=== PATIENT | male | born 1960 | race Caucasian/White ===

== ENCOUNTER 2017-01-20 06:47 | Inpatient (IN) | payer OTHER ==
[2017-01-19 11:37] VITALS: BMI 29.8
[2017-01-20] MEDS ORDERED: methylPREDNISolone ACET (DEPO) 40 MG/1 ML VIAL ONE (07:45)
[2017-01-20] MEDS ORDERED: BUPIVACAINE HCL/PF 2.5 MG/ML - 30 ML VIAL IJ ONE (07:45)
[2017-01-20] MEDS ORDERED: LIDOCAINE 1%-EPI 1:100,000 30 ML MDV IJ ONE (07:46)
[2017-01-20] MEDS ORDERED: GUM MASTIC/STORAX/MSAL/ALCOHOL 1 DRP DROPSBTL MC ONE (07:46)
[2017-01-20] MEDS ORDERED: THROMBIN (BOVINE) 5,000 UNIT VIAL TP ONE (07:46)
[2017-01-20] MEDS ORDERED: MIDAZOLAM HCL 2 MG/2 ML SINGLE DOSE VIAL ONE (07:48)
--- NOTE | 2017-01-20 08:24 | HP ---
History & Physical Update - History History: No Change - Physical Physical: No Change - Assessment Assessment: No Change - Plan Plan: No Change (Today's surgery cancelled due to incomplete authorization. To be rescheduled for TLIF next week.)
[2017-01-27] MEDS ORDERED: oxyCODONE HCL 10 MG SUSTAINED ACTING TABLET ONE (08:14)
[2017-01-27] MEDS ORDERED: oxyCODONE HCL 10 MG SUSTAINED ACTING TABLET PO ONE (08:19)
--- NOTE | 2017-01-27 08:19 | HP ---
History & Physical Update - History History: No Change - Physical Physical: No Change - Assessment Assessment: No Change - Plan Plan: No Change
[2017-01-27] MEDS ORDERED: LIDOCAINE 1%-EPI 1:100,000 30 ML MDV IJ ONE (08:23)
[2017-01-27] MEDS ORDERED: GUM MASTIC/STORAX/MSAL/ALCOHOL 1 DRP DROPSBTL MC ONE (08:23)
[2017-01-27] MEDS ORDERED: BUPIVACAINE HCL/PF 2.5 MG/ML - 30 ML VIAL IJ ONE (08:23)
[2017-01-27] MEDS ORDERED: MIDAZOLAM HCL 2 MG/2 ML SINGLE DOSE VIAL ONE ×4 (08:33→10:04)
[2017-01-27] MEDS ORDERED: BUPIVACAINE HCL/PF 0.5% (5MG/ML) 10 ML VIAL ONE (08:41)
[2017-01-27] MEDS ORDERED: SUCCINYLCHOLINE CHLORIDE 200 MG/10 ML VIAL ONE (08:54)
[2017-01-27] MEDS ORDERED: ceFAZolin SODIUM 1 GM VIAL ONE ×2 (09:09→09:10)
[2017-01-27] MEDS ORDERED: LIDOCAINE HCL 1%, 10 MG/ML (50 mL VIAL) IJ ONE (09:25)
[2017-01-27] MEDS ORDERED: LACTATED RINGERS SOLUTION 1,000 ML IV SCH ×2 (09:30→12:00)
[2017-01-27] MEDS ORDERED: PROMETHAZINE HCL 25 MG/1 ML VIAL IVPUSH PRN (09:30)
[2017-01-27] MEDS ORDERED: ONDANSETRON 4 MG/2 ML VIAL IVPUSH PRN (09:30)
[2017-01-27] MEDS ORDERED: GELATIN, ABSORBABLE 100 EACH SPONGE TP ONE ×2 (10:41→11:18)
[2017-01-27] MEDS ORDERED: THROMBIN (BOVINE) 5,000 UNIT VIAL TP ONE (11:17)
[2017-01-27] MEDS ORDERED: BUPIVACAINE HCL/PF 0.25% (2.5MG/ML) 10 ML VIAL IJ ONE (11:18)
[2017-01-27] MEDS ORDERED: oxyCODONE HCL 5 MG TABLET PO PRN ×2 (11:49)
[2017-01-27] MEDS ORDERED: ONDANSETRON 4 MG/2 ML VIAL IVPB PRN (11:49)
[2017-01-27] MEDS ORDERED: ACETAMINOPHEN 1000 MG/100 ML VIAL (NON FORMULARY) IVPB PRN (11:49)
[2017-01-27] MEDS ORDERED: ONDANSETRON 4 MG/2 ML VIAL ONE (11:50)
[2017-01-27] MEDS ORDERED: ACETAMINOPHEN 1000 MG/100 ML VIAL (NON FORMULARY) IVPB ONE (12:00)
[2017-01-27] MEDS: traMADol HCL 50 MG TABLET PO SCH ×2 (15:02→21:11)
--- NOTE | 2017-01-27 15:28 | OP ---
Operative Note - Note: Operative Date: 01/27/17 Pre-Operative Diagnosis: lumbar spondylolithesis L4-L5 Operation: posterior lumbar decompression, instrumentation, fusion, transforaminal lumbar interbody fusion of L4-L5 with allograft and neuromonitoring Post-Operative Diagnosis: Same as Pre-op Surgeon: Jarvis Thornton Lombardi Developer: Nadine Anne Anesthesiologist/OPTOMETRIST: Carin Henry Anesthesia: Spinal Estimated Blood Loss (mls): 30 Fluid Volume Replaced (mls): 800 Operative Report Dictated: Yes
--- NOTE | 2017-01-27 15:28 | SURG ---
Surgery Director Of Recruitment And Admissions Note Director Of Recruitment And Admissions: Nadine Anne PA-C Date of Service: 01/27/17 Diagnosis: lumbar spondylolithesis Procedure: posterior lumbar decompression, instrumentation, fusion, transforaminal lumbar interbody fusion of L4-L5 with allograft and neuromonitoring I was present for the entirety of the operative procedure. For further detail, please refer to operative report. Visit type - Case Type Case Type: Scheduled Admission - Emergency Emergency Visit: No - New patient This patient is new to me today: Yes Date on this admission: 01/27/17 - Critical Care Critical Care patient: No
[2017-01-27] MEDS: CYCLOBENZAPRINE HCL 10 MG TABLET (FP) PO SCH (16:26)
[2017-01-27] MEDS: CEFAZOLIN 1 GM/D5W 50 ML IVPB SCH (16:54)
[2017-01-27] MEDS ORDERED: CYCLOBENZAPRINE HCL 10 MG TABLET (FP) PO SCH (17:00)
[2017-01-27] MEDS ORDERED: diazePAM 5 MG TABLET PO PRN (17:19)
[2017-01-27] MEDS ORDERED: traMADol HCL 50 MG TABLET PO SCH (21:00)
[2017-01-27] MEDS: ACETAMINOPHEN 325 MG TABLET (FP) PO SCH (21:09)
[2017-01-27] MEDS ORDERED: KETOROLAC TROMETHAMINE 15 MG/ML VIAL IM ONE (21:16)
[2017-01-27] MEDS ORDERED: ATORVASTATIN CA 20 MG TABLET (FP) PO SCH (22:00)
[2017-01-28] MEDS: CYCLOBENZAPRINE HCL 10 MG TABLET (FP) PO SCH ×2 (02:00→08:28)
[2017-01-28] MEDS: ACETAMINOPHEN 325 MG TABLET (FP) PO SCH ×2 (02:00→08:28)
[2017-01-28] MEDS: CEFAZOLIN 1 GM/D5W 50 ML IVPB SCH (02:00)
[2017-01-28] MEDS: traMADol HCL 50 MG TABLET PO SCH ×2 (03:32→08:29)
[2017-01-28 06:42] VITALS: BP 119/62; PULSE 84; TEMP 98.2
--- NOTE | 2017-01-28 07:28 | DS ---
Physical Exam: SUBJECTIVE: Patient seen and examined. Patient states he had pain after surgery and last night, but pain is improving now. He states the pain is only in his back and the symptoms he had in his hip and leg prior to surgery are now gone. He is tolerating his diet, urinating without issue and ambulating. He denies fever, chills, nausea, vomiting. OBJECTIVE: Vital Signs Temperature 98.2 F 01/28/17 03:00 Pulse Rate 84 01/28/17 03:00 Respiratory Rate 18 01/28/17 03:00 Blood Pressure 119/62 01/28/17 03:00 O2 Sat by Pulse Oximetry (%) 100 01/28/17 06:39 PHYSICAL EXAM GENERAL: The patient is awake, alert, and fully oriented, in no acute distress. HEAD: Normal with no signs of trauma. EYES: PERRL, extraocular movements intact, sclera anicteric, conjunctiva clear. ENT: Ears normal, nares patent, moist mucous membranes. NECK: Trachea midline, full range of motion, supple. LUNGS: Breath sounds equal, clear to auscultation bilaterally, no wheezes, no crackles, no accessory muscle use. HEART: Regular rate and rhythm, S1, S2 without murmur, rub or gallop. ABDOMEN: Soft, nontender, nondistended, normoactive bowel sounds, no guarding, no rebound. EXTREMITIES: 2+ pulses, warm, well-perfused, no edema. NEUROLOGICAL: Cranial nerves II through XII grossly intact. Normal speech, gait not observed. Back incisions clean/dry/intact, surgical drain was removed fully intact and without incident, patient tolerated well PSYCH: Normal mood, normal affect. SKIN: Warm, dry. LABS HOSPITAL COURSE: Date of Admission:01/27/17 Date of Discharge: 01/28/17 The patient was admitted to the Med-Surg Unit after an elective repair of their lumbar spondylolithesis L4-L5. Now, s/p posterior lumbar decompression, instrumentation, fusion, transforaminal lumbar interbody fusion of L4-L5 with allograft and neuromonitoring. The day of surgery, the patient ambulated the hallways with assistance. Narcotic and non-narcotic pain management control was achieved with an oral and IV approach. POD #1, the surgical drain was removed fully intact and without incident. An xray was obtained and confirmed hardware placement, no fractures or dislocations. Christie-operative IV ABX were administered. DVT prophylaxis was achieved with SCDs and early ambulation. The patient ambulated with Physical Therapy and no services were recommended upon discharge. Narcotic scripts and or muscle relaxants were checked with [place] [employer]CRETARY prior to escibe. The discharge instructions and an oral pain management plan were reviewed with the patient. All questions answered. Above plan discussed with Dr. Thornton and agreed. Minutes to complete discharge: 30 <Tejal Deutsch - Last Filed: 01/28/17 12:10> Physical Exam: SUBJECTIVE: Patient seen and examined OBJECTIVE: Vital Signs Temperature 98.2 F 01/28/17 03:00 Pulse Rate 84 01/28/17 03:00 Respiratory Rate 18 01/28/17 03:00 Blood Pressure 119/62 01/28/17 03:00 O2 Sat by Pulse Oximetry (%) 100 01/28/17 06:39 PHYSICAL EXAM GENERAL: The patient is awake, alert, and fully oriented, in no acute distress. HEAD: Normal with no signs of trauma. EYES: PERRL, extraocular movements intact, sclera anicteric, conjunctiva clear. ENT: Ears normal, nares patent, oropharynx clear without exudates, moist mucous membranes. NECK: Trachea midline, full range of motion, supple. LUNGS: Breath sounds equal, clear to auscultation bilaterally, no wheezes, no crackles, no accessory muscle use. HEART: Regular rate and rhythm, S1, S2 without murmur, rub or gallop. ABDOMEN: Soft, nontender, nondistended, normoactive bowel sounds, no guarding, no rebound, no hepatosplenomegaly, no masses. EXTREMITIES: 2+ pulses, warm, well-perfused, no edema. NEUROLOGICAL: Cranial nerves II through XII grossly intact. Normal speech, gait not observed. PSYCH: Normal mood, normal affect. SKIN: Warm, dry, normal turgor, no rashes or lesions noted. LABS CBC,CMP WBC 13.7 K/mm3 (4.0-10.8) H 01/28/17 07:30 RBC 4.92 M/mm3 (4.00-5.60) 01/28/17 07:30 Hgb 13.6 GM/dl (11.7-16.9) 01/28/17 07:30 Hct 40.8 % (35.4-49) 01/28/17 07:30 MCV 82.9 fl (80-96) 01/28/17 07:30 MCHC 33.3 g/dl (32.0-35.9) 01/28/17 07:30 RDW 13.3 % (11.9-15.9) 01/28/17 07:30 Plt Count 326 K/MM3 (134-434) 01/28/17 07:30 MPV 6.2 fl (7.5-11.1) L 01/28/17 07:30 Sodium 138 mmol/L (136-145) 01/28/17 07:30 Potassium 4.2 mmol/L (3.5-5.1) 01/28/17 07:30 Chloride 102 mmol/L (98-107) 01/28/17 07:30 Carbon Dioxide 28 mmol/L (22-28) 01/28/17 07:30 Anion Gap 8 (8-16) 01/28/17 07:30 BUN 16 mg/dl (7-18) 01/28/17 07:30 Creatinine 0.9 mg/dl (0.6-1.3) 01/28/17 07:30 Random Glucose 120 mg/dl (74-106) H 01/28/17 07:30 Calcium 9.1 mg/dl (8.4-10.2) 01/28/17 07:30 HOSPITAL COURSE: Date of Admission:01/27/17 Date of Discharge: 01/31/17 The patient was admitted to the Med-Surg Unit after an elective repair of their reherniation. Now, s/p lumbar fusion. The day of surgery, the patient ambulated the hallways with assistance. Narcotic and non-narcotic pain management control was achieved with an oral and IV approach. POD #1, the surgical drain was removed fully intact and without incident. An xray was obtained and confirmed hardware placement at L4-5, no fractures or dislocations. Christie-operative IV ABX were administered. DVT prophylaxis was achieved with SCDs and early ambulation. The patient ambulated with Physical Therapy and no services were recommended upon discharge. Narcotic scripts and or muscle relaxants were checked with [employer] prior to escibe. The discharge instructions and an oral pain management plan were reviewed with the patient. All questions answered. Above plan discussed with Dr. Thornton and agreed. <Jarvis Thornton - Last Filed: 01/31/17 13:19> Visit type - Case Type Case Type: Scheduled Admission <Tejal Deutsch - Last Filed: 01/28/17 12:10>
[2017-01-28 08:42] LABS: ANION GAP 8 (8-16); CALCIUM 9.1 mg/dl (8.4-10.2); CO2 28 mmol/L (22-28); CREATININE 0.9 mg/dl (0.6-1.3); GLUCOSE,RANDOM 120 mg/dl (74-106)
[2017-01-28 08:45] LABS: MCH 27.6 pg (25.7-33.7); MCHC 33.3 g/dl (32.0-35.9); MEAN CELL VOLUME 82.9 fl (80-96); MEAN PLT VOLUME 6.2 fl (7.5-11.1); PLATELET COUNT 326 K/MM3 (134-434); RDW 13.3 % (11.9-15.9); WHITE BLOOD COUNT 13.7 K/mm3 (4.0-10.8)
[2017-01-28] MEDS ORDERED: VALSARTAN 160 MG TABLET (UD) PO SCH (10:00)
--- NOTE | 2017-01-28 12:13 | OP ---
DATE OF OPERATION: 01/27/2017 PREOPERATIVE DIAGNOSIS: Reherniation L4-L5. POSTOPERATIVE DIAGNOSIS: Reherniation L4-L5. PROCEDURES PERFORMED: 1. Transforaminal lumbar interbody fusion. 2. Placement of instrumentation. 3. Placement of prosthetic cage. 4. Hemilaminectomy. SURGEON: Jarvis Thornton MD PRESIDENT OF [place]: MERVAT Gross ESTIMATED BLOOD LOSS: Less than 50 mL. INTRAVENOUS FLUIDS: Per Anesthesia. ANESTHESIA: None. COMPLICATIONS: None. CONDITION: The patient was brought to the PACU in stable condition. INDICATIONS FOR SURGERY: The patient is a 56-year-old gentleman who has been suffering from pain from his back down his left leg. He had previously undergone a microdiskectomy and got relief, but then the pain came back. An MRI was taken which noted that he had a reherniation at L4-L5. He had gone through an exhaustive course of treatment for the reherniation, including medications, physical therapy as well as injections. Unfortunately, his pain continued to persist in spite of all this. At this point, the risks, benefits and alternatives were discussed and the patient consented to surgery. DESCRIPTION OF PROCEDURE: The patient was brought to the operating room by the anesthesia staff. After appropriate patient identification was performed, spinal anesthesia was given. The patient was able to position himself prone onto the OR table, with all bony prominences well-padded at this time. The C-arm was brought in. The L4 and L5 pedicles were walked off. Lidocaine with epinephrine 10 mL was injected into his back at this time. His back was prepped and draped in the usual sterile manner. At this point, a timeout was completed, and incisions were made bilaterally over the L4 and L5 pedicles. Dissection was carried down to the fascia. The C-arm was brought in. Under C-arm guidance, trocars were advanced to both the L4 and L5 pedicles. After the trocars were advanced and confirmed, wires were inserted. Trocars were removed. Over the wires tap was performed. Screws were inserted. On the left-hand side, retractor blades were set up to expose the L4-L5 facet joint. This was confirmed with x-ray. A bur was used to remove the facet joint. The disk was entered using a series of pituitaries, Kerrison's and curets. A diskectomy was completed. The endplates were decorticated at this time. Bone graft was laid down. A cage filled with bone graft was placed in. Screw heads were placed over the screws. A sudhir was measured and placed on. Caps were placed on. Compression was applied. Final tightening was performed. On the right-hand side, a sudhir was measured and placed. Caps were placed on. Compression was applied. Final tightening was performed. All extra instrumentation was removed at this time. AP and lateral x-rays confirmed the instrumentation to be in good position. The fascia was closed with a number 1 Vicryl suture. A drain was placed. The subcutaneous tissues were closed with 2-0 Vicryl suture. The skin was closed with 3-0 Monocryl suture. Dermabond was applied. Steri-Strips were applied. A sterile dressing was applied. The patient was placed supine on the OR bed, extubated in the OR and brought to the PACU in stable condition. Mateo YOON/[id number]
== END 2017-01-28 10:00 | disposition home or self-care (01) | DRG 304 ==
LOC: FASU 06:47 → FM/S 01-27 07:30 → EDSTATUS 01-27 12:30 → FM/S 01-27 13:48
PROVIDERS: ADMIT Orthopaedic Surgery Orthopaedic Surgery of the Spine; ATTEND Orthopaedic Surgery Orthopaedic Surgery of the Spine
PROC: 0SB20ZZ Excision of Lumbar Vertebral Disc, Open Approach (ICD-10-PCS; 2017-01-27)
PROC: 0SG30AJ Fusion of Lumbosacral Joint with Interbody Fusion Device, Posterior Approach, Anterior Column, Open Approach (ICD-10-PCS; principal; 2017-01-27 09:00)
DX: M43.16 Spondylolisthesis, lumbar region (principal); I10 Essential (primary) hypertension; E78.5 Hyperlipidemia, unspecified
CPT/HCPCS: 36415; 72100-TC; 76001-TC; 80048; 85027; 94760; 97116-GP; 97161-GP